=== PATIENT | female | born 1950 | race Caucasian/White ===

== ENCOUNTER 2020-10-15 12:25 | Day surgery (SDC) | payer MEDICARE, SELFPAY ==
--- NOTE | 2020-10-11 10:35 | PCM.HP.BLA ---
History and Physical Date of Admission: 10/13/20 History and physical examination 70 y/o WM presents with glioblastoma multiforme. She requires IV access for her chemotherapy, and has exhausted vascular access. She therefore present for portacath placement PAST MEDICAL HISTORY Hyperlipidemia ? Hypertension ? IBS (irritable bowel syndrome) ? Type 2 diabetes mellitus (HCC) ? Glioblastoma multiforme PMR PAST SURGICAL HISTORY HEMORRHOIDAL Hemorrhoid surgery, exact procedure unclear Left frontal craniotomy with near total resection of frontal GM 04/11/2019 MEDICATIONS: levETIRAcetam (KEPPRA) 750 mg tablet levETIRAcetam (KEPPRA) 750 mg tablet predniSONE 10 mg tablet pack pyridoxine, vitamin B6, (VITAMIN B-6) 100 mg tablet metFORMIN (GLUCOPHAGE) 500 mg tablet levothyroxine (SYNTHROID) 75 mcg tablet triamterene-hydrochlorothiazide 37.5-25 mg per capsule losartan (COZAAR) 25 mg tablet Allergies: Patient has no known allergies. FAMILY HISTORY ? Diabetes Mother ? ? Diabetes Father ? ? Diabetes Sister ? ? Diabetes Brother ? ?? SOCIAL HISTORY ? Smoking status: Never Smoker ? Smokeless tobacco: Never Used Substance Use Topics ? Alcohol use: Never ? ? Frequency: Never ? Drug use: Never Review of systems: Constitutional: No recent fever or weight loss. Eyes: No history of glaucoma or cataracts ENMT: No recent ear infection, nasal congestion, mouth sores or sore throat. CV: No history of chest pain, palpitations or leg swelling Respiratory: No history of SOB, asthma or recent cough. Gastrointestinal: No history of nausea, vomiting, dysphagia or abdominal pain. Genitourinary: No history of hematuria or dysuria. Musculoskeletal: No complaint of arthritis, unstable gait or arm/leg weakness Psychiatric: No history of hallucinations or depression or anxiety ? ROS Neurological: Expressive aphasia No complaint of headache No complaint of tinnitus No complaint of decreased hearing No complaint of diplopia No complaints of decreased visual actuity. No complaint of arm/leg numbness No problem with limb coordination No complaint of syncope, seizures or disorientation Physical examination: Impression: glioblastoma multiforme, need for IV access for chemotherapy Discussion/Plan: The above has been reviewed. Risks/benefits of procedure have been discussed with patient, including but not limited to: infection, bleeding, injury to any blood vessels/nerves, thromboses of the blood vessels, migration of the catheter, non functioning of the portacath, injury to the lungs such as pneumothorax and/or hemothorax, infection of the port, wound infections, scar tissue, complications of anesthesia, etc. - she understands. The patient was offered a surgery/procedure. The provider and patient have discussed in detail the risk of exposure to and/or potential harm posed by the COVID-19 virus with having a surgery/procedure at this time versus the risk of delaying the surgery/procedure. It is not possible to know either the risk of delaying the surgery or procedure or chance of getting an infection with perfect accuracy, but a joint decision was made between the patient and the provider to proceed at this time with the scheduled surgery/procedure. The patient wishes to proceed. I have answered all her questions and she has no further questions
--- NOTE | 2020-10-12 11:44 | NURSING ---
PAT interview completed with pt's dgtr Nata Parada
[2020-10-15] VITALS (7 sets, daily range): BP systolic 104–146; BP diastolic 51–63; PULSE 64–78; RESP 14–16; TEMP 36.1–36.3; O2SAT 97–99; BMI 26.4
[2020-10-15 13:11] LABS: Bedside Glucose 84 mg/dL (70-110)
--- NOTE | 2020-10-15 13:34 | HP.PCM_ITS ---
History and Physical Date of Admission: 10/15/20 In lieu of an in-person visit due to COVID-19 concerns, a?virtual?visit was performed on the patient. ?Patient is aware that I am not fully able to assess symptoms and do a full physical examination including vital signs assessment at this time. ?Patient consents to this encounter. ??Call had to be completed via [employer] with patient consent, as patient was unable to sign into her [facility] Zoom visit ? Patient's daughter Nata present with her throughout the virtual visit encounter ? ? Cat Srivastava 1950 ? ? REFERRING PHYSICIAN: ??Iliana Bennett MD ? CHIEF COMPLAINT: ??Consult ? HPI: The patient is a 70 year old female with a diagnosis of?gliobastoma. ?Cat follows with Dr. Bennett and receives treatments of Avastin. ?Her family notes there has been increased difficulty obtaining IV access for treatments, and patient is now wishing to have a port placed. ?She has an order placed by hematology/oncology, but her family had requested that she have this placed in [place] which is closer to them if possible. ?They note her next treatment is scheduled for 10/19 and would like to have port placed before that time if at all possible. ?The patient denies a prior history of central venous access. ? ? ? The patient is being seen by me today at the request of ?for my opinion and advice regarding port placement.? ? ? PAST MEDICAL HISTORY PAST MEDICAL HISTORY Diagnosis Date ? Glioblastoma (HCC) ? ? Hyperlipidemia ? ? Hypertension ? ? IBS (irritable bowel syndrome) ? ? Polymyalgia rheumatica (HCC) ? ? Seizures (HCC) ? ? Type 2 diabetes mellitus (HCC) ? ? PAST SURGICAL HISTORY PAST SURGICAL HISTORY Procedure Laterality Date ? BRAIN SURGERY HX ? 04/15/2019 ? HEMORRHOIDAL ? ? ? Hemorrhoid surgery, exact procedure unclear ? ? CURRENT MEDICATIONS Current Outpatient Medications Medication Sig Dispense Refill ? levETIRAcetam (KEPPRA) 750 mg tablet TAKE ONE TABLET BY MOUTH TWO TIMES A DAY 180 tablet 1 ? levETIRAcetam (KEPPRA) 750 mg tablet Take 1 tablet by mouth twice daily. 180 tablet 3 ? predniSONE 10 mg tablet pack Take by mouth once daily. Dosage starts at 6, then 5, 4, etc ? ? ? pyridoxine, vitamin B6, (VITAMIN B-6) 100 mg tablet Take 1 tablet by mouth once daily. 30 tablet 4 ? iv contrast (will be provided with radiology test) MRI Brain Inject, intravenously, once for 1 dose.No IV access, insert saline lock prior to beginning of sedation, infusion, injection of imaging exam.Discontinue saline lock post exam. If Pt. has a central line or IVAD, may access for administration according to line specific nursing protocol.Once exam is complete flush line and de-access according to line specific nursing protocol in the MR contrast administration guidelines link 1 Each 0 ? metFORMIN (GLUCOPHAGE) 500 mg tablet Take 1 tablet by mouth once daily. ? ? ? iv contrast (will be provided with radiology test) MRI Brain Inject, intravenously, once for 1 dose.No IV access, insert saline lock prior to beginning of sedation, infusion, injection of imaging exam.Discontinue saline lock post exam. If Pt. has a central line or IVAD, may access for administration according to line specific nursing protocol.Once exam is complete flush line and de-access according to line specific nursing protocol in the MR contrast administration guidelines link 1 Each 0 ? levothyroxine (SYNTHROID) 75 mcg tablet Take 1 tablet by mouth DAILY (6 AM). 60 tablet 0 ? triamterene-hydrochlorothiazide 37.5-25 mg per capsule Take 1 capsule by mouth once daily. ? ? ? losartan (COZAAR) 25 mg tablet Take 50 mg by mouth once daily. ? ? ? Current Facility-Administered Medications Medication Dose Route Frequency Provider Last Rate Last Admin ? pentamidine 300 mg nebulizer solution (NEBUPENT) ?300 mg INHALATION q 4 WEEKS Natanael Lora ? 300 mg at 06/12/19 0945 ? ALLERGIES:?Patient has no known allergies. ? PERSONAL HISTORY:? SOCIAL HISTORY Social History ? Tobacco Use ? Smoking status: Never Smoker ? Smokeless tobacco: Never Used Vaping Use ? Vaping Use: Never used Substance Use Topics ? Alcohol use: Never ? Drug use: Never ? FAMILY HISTORY:? FAMILY HISTORY FAMILY HISTORY Problem Relation Age of Onset ? Diabetes Mother ? ? Diabetes Father ? ? Diabetes Sister ? ? Diabetes Brother ? ? REVIEW OF SYMPTOMS: ??The review of systems data was entered by the nurse and reviewed by me ? Nursing Notes: Sameera Wise RN ?10/09/2020 ?9:55 AM ?Signed ? REVIEW OF SYSTEMS: ?General:???The patient denies fatigue, notes weight loss, denies weight gain, denies feeling hot, and notes feelings of cold. ?Eyes: ?The patient denies glaucoma, denies eye injury/surgery, wears glasses or contacts. ?Ear/Nose/Throat: ?The patient denies allergies, denies hayfever, denies ear infections, and denies bloody noses. ?Cardiovascular: ?The patient denies chest pain, denies heart disease, notes high blood pressure,denies cardiac stent, denies prior heart attack, denies irregular heart beat, notes high cholesterol, ?denies poor circulation, denies heart failure, other cardiac issues, denies claudication, denies cold feet, denies peripheral arterial stent. ?Respiratory: ?The patient denies tuberculosis, notes pneumonia, denies frequent cough, denies pulmonary embolism, denies shortness of breath, and denies coughing up blood. ?Gastrointestinal: ?The patient denies difficulty swallowing, denies acid reflux, denies ulcers, denies vomiting, denies jaundice/hepatitis, denies gallbladder problems, denies black or tarry stools, notes hemorrhoids, denies bleeding from rectum, denies diverticulitis, denies constipation, notes diarrhea, denies loss of stool control, and denies hernias. ?Kidney/Bladder: ?The patient denies kidney stones, denies urine infections, and denies bloody urine. ?Skin: ?The patient denies a history of skin cancer, denies bleeding/pedraza ing moles, and denies a history of skin rash. ?Neurologic: ?The patient notes a history of epilepsy/convulsions, denies headaches, denies head/spinal injuries, and denies stroke/TIA. ?Psychiatric: ?The patient denies psychiatric medications, denies depression, and denies voices, denies substance abuse. ?Endocrine: ?The patient notes thyroid disorders, notes diabetes, and denies hormonal problems. ?Hematologic: ?The patient denies a history of bruising, denies bleeding, and denies anemia, denies blood clots. ?Infections: ?The patient denies a history of measles and mumps, denies rheumatic fever, and denies sexually transmitted diseases. ?Musculoskeletal: ?The patient denies back pain/injury, denies back problems, denies sciatica, denies knee/foot trouble, denies arthritis, or denies gout. ? ? When was patient's last Mammogram screening? unknown ? ?Last Colonoscopy: ?unknown ? Sameera Wise RN I have confirmed and edited as necessary, the PFSH and ROS obtained by others. ? ? On limited video-enabled visual exam: ? ? General: ?The patient is 70 year old female, well nourished, well hydrated in no acute distress. ?The patient is oriented to time, place, and person. ? Normal speech and affect, answers questions appropriately ? ? LABORATORY VALUES: As Noted ? RADIOLOGIC STUDIES: ?As Noted ? ? Assessment ? IMPRESSION:??glioblastoma, need for IV access ? PLAN: ??I have reviewed my findings with the surgeon,?plan will be?to perform a port a cath placement, laterality to be determined at time of surgery. ?The planned surgical procedure was discussed extensively with the patient. ?The risks, benefits, anticipated outcomes and possible complications were mentioned. ?My staff has also explained the procedure in understandable terms and the patient was given the option to take printed material concerning the planned procedure. ?The patient had the opportunity to ask questions concerning the planned procedure. ?The patient freely consents to the planned procedure. ? The patient was offered a surgery/procedure at a [facility] facility. I have counseled the patient regarding the risk of exposure to and/or potential harm posed by the COVID-19 virus with having a surgery/procedure at this time versus the risk of??delaying the surgery/procedure. It is not possible to know either the risk of delaying the surgery or procedure or chance of getting an infection with perfect accuracy, but a joint decision was made between the patient and myself?to proceed at this time with endoscopy. ? ? [facility] [id number] ? Patient Weight ?Last 1 Encounter Wt Readings: ???Date: ?Wt: ???10/05/2020 ??71.7 kg (158 lb) ? Antibiotic:???Ancef 2gm IVPB international marketing coordinator to OR ? Planned Anesthetic:?MAC with local? The surgeon may?plan to access the port at the time of surgery. ? Dr. Weber plans to perform the port placement at [facility]. ?Case has been extensively discussed with Dr. Weber and he is aware of patient's treatment regimen with Avastin and willing to proceed with the port placement without interruption of patient's treatment regimen. ?He will meet and speak w ith patient and her family the day of scheduled port placement, they are aware of this. ? ? Diagnoses:?(C71.9) GBM (glioblastoma multiforme) (HCC) ?(primary encounter diagnosis) ? ? ? The patient is being seen by me today at the request of ?for my opinion and advice regarding port placement.? ? I spent a total of?35?minutes on the date of the service which included preparing to see the patient, [id number] patient care, completing clinical documentation, obtaining and/or reviewing separately obtained history, performing a medically appropriate examination, counseling and educating the patient/family/caregiver, ordering medications, tests, or procedures and communicating with other HCPs (not separately reported). ? ? Kathe Valdivia PA-C I have re-examined the patient. There are no clinical changes since date of exam.
[2020-10-15] MEDS: Cefazolin 2 GM in 0.9% Normal Saline 100 ML IV (14:05)
[2020-10-15] MEDS: Bupivacaine Mpf 0.5% 30 ML VIAL (14:30)
[2020-10-15] MEDS: Lidocaine 1% (30 ml sdv) 30 ML Vial (14:30)
--- NOTE | 2020-10-15 14:32 | PCM.OPRPT ---
Problem List (1) Vascular catheter fitting or adjustment Status: Acute Report of Operation Date of Procedure: 10/15/20 Pre-Operative Diagnosis: Vascular fitting and adjustment Post-Operative Diagnosis: Same Surgery/Procedure Performed:: Placement of right IJ PowerPort Type of Anesthesia:: Local MAC Anesthesiologist: Rustam Platt Estimated Blood Loss (mL): < 25 cc Description of Procedure: Patient brought in the operating room. Placed in the supine position. Patient was placed in the headdown position. I ultrasound the neck identify the internal jugular vein marked the neck and chest appropriately. Neck and chest were then sterilely prepped and draped in usual fashion. Local was injected into the neck. Seldinger's technique was used to gain access into the internal jugular vein. Guidewire was placed over the needle the needle was removed. Fluoroscopy was used to confirm proper placement of the wire. Local was injected under the chest. Incision was made. Electrocautery was used to create a pocket for the port. Skin caroline was made in the neck. Dilator was placed over the guidewire and the dilator and sheath were placed over the guidewire. The guidewire and dilator were removed leaving the sheath in place. Single-lumen catheter was placed into the sheath and sheath was removed. Fluoroscopy was used to confirm proper length. I tunneled from the pocket created on the chest over the collarbone into the neck and brought the catheter down. I cut the catheter to length placed the locking hub on the catheter the port under the catheter and secured the 2 with a locking hub. It flushed and irrigated well and was flushed with 4 cc of Hepflush. Port was secured into the pocket with 2 sutures of 2-0 Prolene. Skin incisions were closed with subcuticular stitches of 3-0 Vicryl in a running 4-0 Monocryl Dermabond was applied sterile dressings were applied and the patient tolerated the procedure well. Portable chest x-ray was ordered. - Admit VTE Documentation VTE Present on Admission: No VTE Mechan Device Prophylaxis: SCD's VTE Pharm Prophylaxis ordered?: No Reason prophylaxis not ordered:: Treatment Not Indicated
--- NOTE | 2020-10-15 14:38 | DCINST_ITS ---
Discharge Diet: No Restrictions - Pain medication may cause nausea. You should typically eat light foods as you take your pain medication. Discharge Activity: May Shower - with the bandage in place 1-2 days after surgery. DO NOT SHOWER WHEN YOUR PORT IS ACCESSED. Additional Activity Instructions:: May not drive, work with heavy equipment, or sign legal documents for [address] if you are no longer taking narcotic pain medications. You may drive when you are no longer taking pain medications. Additional Dressing/Incision Instructions:: Leave the bandage on for 2-3 days. When you remove the bandage, leave the steri-strips intact until they fall off. Allergies/Adverse Reactions: Allergies No Known Allergies Allergy (Verified 10/12/20 10:10) Medications to take at Discharge Avastin IV . 10/12/20 Cholecalciferol (Vitamin D3) [Vitamin D3] 2,000 unit PO DAILY 10/12/20 Levetiracetam [Keppra] 750 mg PO BID 10/12/20 Levothyroxine [Synthroid] 75 mcg PO DAILY 10/12/20 Losartan Potassium [Cozaar] 25 mg PO DAILY 10/12/20 Metformin HCl 500 mg PO DAILY 10/12/20 Prednisone 10 mg PO DAILY 10/12/20 Pyridoxine HCl [Vitamin B-6] 25 mg PO DAILY 10/12/20 Triamertine Hctz 25/37.5 1 tablet PO DAILY 10/12/20 Primary Care Physician: Arnav Ross MD [Primary Care Provider] - Test Results: Test results from this visit will be discussed in further detail at your follow- up appointment, if applicable. Please Follow Up With: He Weber MD - [phone] When: Please plan to follow up in 7 days in the office.
--- NOTE | 2020-10-15 14:50 | RAD_ITS ---
STUDY: X-RAY CHEST REASON FOR EXAM: Female, 70 years old. line TECHNIQUE: Single AP portable view of the chest. COMPARISON: None. FINDINGS: Right internal jugular chest port with tip the catheter overlying the junction of the right atrium and spur vena cava. No pneumothorax. The lungs are clear and expanded. There is no demonstrated pleural abnormality. There is moderate cardiac enlargement. Normal mediastinum and radha. Normal visualized pulmonary arteries. Normal visualized aortic arch and descending thoracic aorta. Normal visualized thoracic spine. Normal visualized ribs, clavicles, and shoulders. There is no demonstrated abnormality of the visualized soft tissue structures of the upper abdomen. RAD/CXR for Line Placement IMPRESSION: 1. Right internal jugular chest port with tip the catheter overlying the superior vena cava and no pneumothorax. 2. Cardiomegaly. 3. No active pulmonary disease. Electronically Signed: Mayank Jorge MD at 15:23 EDT Tel , Service support ,
[2020-10-15] MEDS: Lactated Ringers 1,000 ML 100 ML IV (14:59)
== END 2020-10-15 16:45 | disposition home or self-care (01) ==
LOC: SDC 12:26 → AC 12:27
PROVIDERS: PCP Family Medicine; Referring Provider Surgery; Visit Provider Surgery
PROC: (CPT 36561; principal; 2020-10-15 14:35)
DX: C71.9 Malignant neoplasm of brain, unspecified (principal); Z45.2 Encounter for adjustment and management of vascular access device; E78.5 Hyperlipidemia, unspecified; I10 Essential (primary) hypertension; E11.9 Type 2 diabetes mellitus without complications; R56.9 Unspecified convulsions; M35.3 Polymyalgia rheumatica; Z79.899 Other long term (current) drug therapy; Z79.84 Long term (current) use of oral hypoglycemic drugs; Z79.52 Long term (current) use of systemic steroids; Z20.822 Contact with and (suspected) exposure to COVID-19
CPT/HCPCS: 00532; 36561; 71045; 77001; 82962; 87426; C9803; J7120; C1788; J2405